=== PATIENT | male | born 1995 | race Caucasian/White ===

== ENCOUNTER 2021-04-23 22:23 | Emergency (ER) | payer BC, OTHER ==
[2021-04-23] MEDS ORDERED: Doxycycline 100 MG Tab PO ONE (22:24)
--- NOTE | 2021-04-23 22:44 | EDM.PDOC ---
ED HPI GENERAL MEDICAL PROBLEM - General Chief Complaint: Skin Complaint Stated Complaint: SPIDER BITE Time Seen by Provider: 04/23/21 22:40 Source of Information: Reports: Patient History Limitations: Reports: No Limitations - History of Present Illness INITIAL COMMENTS - FREE TEXT/NARRATIVE: Myles complains of red area other foot ankle since yesterday. No trauma,worried about a spider bite. Pain and redness,no systemic symptoms. Otherwise healthy with no active medical problems. Left Ankle Pain Score (Numeric/FACES): 2 - Related Data Allergies Allergy/AdvReac Type Severity Reaction Status Date / Time No Known Allergies Allergy Verified 02/01/15 14:09 Home Meds: Home Meds NK [No Known Home Meds] 04/23/21 [History] Past Medical History - Past Health History Medical/Surgical History: Denies Medical/Surgical History Social & Family History - Family History Family Medical History: No Pertinent Family History - Tobacco Use Tobacco Use Status *Q: Never Tobacco User - Caffeine Use Caffeine Use: Reports: None - Recreational Drug Use Recreational Drug Use: No ED ROS GENERAL - Review of Systems Review Of Systems: Comprehensive ROS is negative, except as noted in HPI. ED EXAM, SKIN/RASH Exam: See Below Text/Narrative:: THere is a blister on the right ankle,about 5 mm. Red base,with mild edema and induration of surrounding tissue ,which is also warm to touch. Exam Limited By: No Limitations General Appearance: Alert, WD/WN Course - Vital Signs Last Recorded V/S: Last Vital Signs Temp 98.2 F 04/23/21 22:28 Pulse 58 L 04/23/21 22:28 Resp 18 04/23/21 22:28 BP 135/84 04/23/21 22:28 Pulse Ox 98 04/23/21 22:28 Departure - Departure Time of Disposition: 22:42 Disposition: Home, Self-Care 01 Condition: Good Clinical Impression: Cellulitis - Discharge Information Instructions: Insect Bite, Adult, [id number] Referrals: Marvin Zafar MD [Primary Care Provider] - 3 Days Forms: ED Department Discharge Additional Instructions: doxycycline 100mg take 1 tab by mouth twice a day. Sepsis Event Note (ED) - Evaluation Sepsis Screening Result: No Definite Risk - Focused Exam Vital Signs: Vital Signs Temp Pulse Resp BP Pulse Ox 04/23/21 22:28 98.2 F 58 L 18 135/84 98 - Problem List & Annotations (1) Bug bite SNOMED Code(s): 538759935, 687338597 Code(s): W57.XXXA - BIT/STUNG BY NONVENOM INSECT & OTH NONVENOM ARTHROPODS, INIT Status: Acute Qualifiers: Encounter type: initial encounter Qualified Code(s): W57.XXXA - Bitten or stung by nonvenomous insect and other nonvenomous arthropods, initial encounter - Problem List Review Problem List Initiated/Reviewed/Updated: Yes - Assessment/Plan Plan: Warm compress. Doxycycline 100 mg po bid. Follow up in 1-2 days
== END 2021-04-23 22:49 | disposition home or self-care (01) ==
LOC: FB.ED 22:23
DX: L03.116 Cellulitis of left lower limb (principal)
CPT/HCPCS: 99283; A9270